=== PATIENT | female | born 1935 | race Caucasian/White ===

== ENCOUNTER 2018-06-16 12:19 | Emergency (ER) | payer OTHER ==
[~2018-06-16] VITALS: Ht 157.5 cm; Wt 73.0 kg
[~2018-06-16 12:19] MED LIST: ALLO300 PO; GABA600 PO; HYDACE5 PO; HYDR1TAB94 PO; Indapamide2.5 MG PO; METF500 PO; NAPR500 PO; POTA10T PO; PRAV10 PO; PRAVASTATIN SOD10 MG PO; Percocet 5-3251 EACH PO
[2018-06-16 13:07] LABS: BASOPHILS ABSOLUTE AUTO 0.09 K/mm3 (0.00-0.23); BASOPHILS PERCENT AUTO 1 % (0-2); EOSINOPHILS ABSOLUTE AUTO 0.41 K/mm3 (0.00-0.68); EOSINOPHILS PERCENT AUTO 4 % (0-6); Hematocrit 41.4 % (33.0-51.0); Hemoglobin 13.2 g/dL (11.5-16.0); IMMATURE GRAN ABSOLUTE AUTO 0.09 K/mm3 (0.00-0.10); IMMATURE GRAN PERCENT AUTO 1 % (0-1); LYMPHOCYTES ABSOLUTE AUTO 3.19 K/mm3 (0.84-5.20); LYMPHOCYTES PERCENT AUTO 31 % (21-46); MONOCYTES ABSOLUTE AUTO 0.68 K/mm3 (0.16-1.47); MONOCYTES PERCENT AUTO 7 % (4-13); Mean Corpuscular HGB 28.2 pg (26.0-34.0); Mean Corpuscular HGB Conc 31.9 g/dL (31.5-36.5); Mean Corpuscular Volume 89 fL (80-100); Mean Platelet Volume 10.3 fL (9.1-12.4); NEUTROPHILS ABSOLUTE AUTO 5.99 K/mm3 (1.96-9.15); NEUTROPHILS PERCENT AUTO 57 % (41-73); Platelet Count 261 K/mm3 (150-400); RDW Coefficient Variation 14.5 % (11.7-14.2); RDW Standard Deviation 46.7 fL (35.1-46.3); Red Blood Cell Count 4.68 M/mm3 (3.80-5.20); White Blood Cell Count 10.45 K/mm3 (4.00-11.30)
[2018-06-16] MEDS ORDERED: POTCHL10ER PO (14:26)
[2018-06-16] MEDS ORDERED: METF500 PO (14:27)
[2018-06-16] MEDS ORDERED: DULO30 PO (14:28)
[2018-06-16] MEDS ORDERED: GABA400 PO (14:28)
[2018-06-16 14:29] LABS: Alanine Aminotransfer (ALT/SGP 21 U/L (12-78); Albumin/Globulin Ratio 1.1 (0.8-1.8); Alk Phos 88 U/L (50-136); Anion Gap 9 mmol/L (6-16); Aspartate Aminotrans (AST/SGOT 17 U/L (12-37); Bilirubin, Total 0.3 mg/dL (0.1-1.0); Blood Urea Nitrogen 13 mg/dL (8-24); Bun/Creatinine Ratio 23.3 (12.0-20.0); CO2, Blood 30 mmol/L (21-32); Calcium, Blood 9.6 mg/dL (8.5-10.1); Chloride, Blood 102 mmol/L (98-108); Creatinine, Blood 0.56 mg/dL (0.40-1.00); Globulin, Blood 3.7 g/dL (2.2-4.0); Glomerular Filtration Rate >60 (60-); Glucose, Blood 112 mg/dL (70-99); Potassium, Blood 3.7 mmol/L (3.5-5.5); Sodium, Blood 141 mmol/L (136-145); Total Protein, Blood 7.7 g/dL (6.4-8.2)
== END 2018-06-16 15:14 | disposition home or self-care (01) ==
LOC: ER 12:19
PROVIDERS: Physician Assistant
DX: S16.1XXA Strain of muscle, fascia and tendon at neck level, initial encounter (principal); S00.83XA Contusion of other part of head, initial encounter; W18.30XA Fall on same level, unspecified, initial encounter; Z79.899 Other long term (current) drug therapy; Z79.84 Long term (current) use of oral hypoglycemic drugs; Z91.018 Allergy to other foods
CPT/HCPCS: 36415; 70450; 72125; 73130; 73562-LT; 73562-RT; 80053; 85025; 93005; 93010; 99284-25

== ENCOUNTER 2018-08-30 22:06 | Emergency (ER) | payer OTHER ==
[~2018-08-30] VITALS: Ht 162.6 cm; Wt 72.6 kg
[~2018-08-30 22:06] MED LIST changes: +DULO30 PO; +GABA400 PO; +POTCHL10ER PO
[2018-08-30 22:55] LABS: BASOPHILS ABSOLUTE AUTO 0.08 K/mm3 (0.00-0.23); BASOPHILS PERCENT AUTO 1 % (0-2); EOSINOPHILS ABSOLUTE AUTO 0.29 K/mm3 (0.00-0.68); EOSINOPHILS PERCENT AUTO 2 % (0-6); Hematocrit 38.1 % (33.0-51.0); Hemoglobin 12.5 g/dL (11.5-16.0); IMMATURE GRAN PERCENT AUTO 1 % (0-1); LYMPHOCYTES ABSOLUTE AUTO 3.07 K/mm3 (0.84-5.20); LYMPHOCYTES PERCENT AUTO 25 % (21-46); MONOCYTES ABSOLUTE AUTO 0.93 K/mm3 (0.16-1.47); MONOCYTES PERCENT AUTO 8 % (4-13); Mean Corpuscular HGB 28.4 pg (26.0-34.0); Mean Corpuscular HGB Conc 32.8 g/dL (31.5-36.5); Mean Corpuscular Volume 87 fL (80-100); Mean Platelet Volume 10.4 fL (9.1-12.4); NEUTROPHILS ABSOLUTE AUTO 7.71 K/mm3 (1.96-9.15); NEUTROPHILS PERCENT AUTO 63 % (41-73); Platelet Count 279 K/mm3 (150-400); RDW Coefficient Variation 14.6 % (11.7-14.2); RDW Standard Deviation 46.4 fL (35.1-46.3); White Blood Cell Count 12.18 K/mm3 (4.00-11.30)
[2018-08-30 23:15] LABS: Alanine Aminotransfer (ALT/SGP 20 U/L (12-78); Albumin, Blood 4.1 g/dL (3.4-5.0); Albumin/Globulin Ratio 1.2 (0.8-1.8); Alk Phos 96 U/L (50-136); Anion Gap 9 mmol/L (6-16); Aspartate Aminotrans (AST/SGOT 9 U/L (12-37); Bilirubin, Total 0.2 mg/dL (0.1-1.0); Blood Urea Nitrogen 19 mg/dL (8-24); Bun/Creatinine Ratio 19.5 (12.0-20.0); CO2, Blood 29 mmol/L (21-32); Calcium, Blood 9.2 mg/dL (8.5-10.1); Chloride, Blood 100 mmol/L (98-108); Creatinine, Blood 0.97 mg/dL (0.40-1.00); Globulin, Blood 3.5 g/dL (2.2-4.0); Glomerular Filtration Rate 58 (60-); Glucose, Blood 189 mg/dL (70-99); Potassium, Blood 3.5 mmol/L (3.5-5.5); Sodium, Blood 138 mmol/L (136-145); Total Protein, Blood 7.6 g/dL (6.4-8.2); Troponin I <0.015 ng/mL (0.000-0.040)
[2018-08-31 00:27] LABS: Source, Urine Clean Catch
[2018-08-31 00:33] LABS: Appearance, Urine Clear (Clear); Bilirubin, Urine Neg (Neg); Blood, Urine Neg (Neg); Color, Urine Yellow (P-Yellow); Glucose Qualitative, Urine Neg (Neg); Ketones, Urine Neg (Neg); Leukocyte Esterase, Urine Neg (Neg); Nitrite, Urine Neg (Neg); Protein, Urine Neg (Neg); Urobilinogen, Urine NORM (Normal)
== END 2018-08-31 03:08 | disposition home or self-care (01) ==
LOC: ER 22:06
PROVIDERS: Emergency Medicine; Physician Assistant
DX: M54.6 Pain in thoracic spine (principal); M79.602 Pain in left arm; E11.9 Type 2 diabetes mellitus without complications
CPT/HCPCS: 36415; 71046; 80053; 81003; 84484; 85025; 93005; 93010; 96374; 99284-25; J1885

== ENCOUNTER 2019-06-09 09:29 | Day surgery (SDC) | payer OTHER ==
--- NOTE | 2019-06-09 11:21 | NUR ---
PT TO STEP. BAND AID D/I. DENIES PAIN AT PRESENT. NO SWELLING OR BRUISING NOTED AT BIOPSYS SITE.
--- NOTE | 2019-06-09 12:06 | NUR ---
REPORT GIVEN TO RUPAL CERVANTES RN.
--- NOTE | 2019-06-09 12:56 | NUR ---
WRITTEN AND VERBAL D/C INSTUCTIONS GIVEN TO PT WITH STATED UNDERSTANDING
== END 2019-06-09 23:51 | disposition home or self-care (01) ==
LOC: CT 09:29 → ORSCMMR 09:30 → CT 10:00
DX: C78.6 Secondary malignant neoplasm of retroperitoneum and peritoneum (principal); C56.2 Malignant neoplasm of left ovary
CPT/HCPCS: 49180; 77012